=== PATIENT | male | born 1940 | race Caucasian/White ===

== ENCOUNTER 2020-03-06 07:06 | Day surgery (SDC) | payer MEDICARE ==
[~2020-03-06] VITALS: Ht 170.2 cm; Wt 102.7 kg
[~2020-03-06 07:06] MED LIST: OMEP-84 PO; OSC500T PO; SIMV-42 PO; VENL150C50 PO
[2020-03-06] MEDS ORDERED: normal saline 1000ml 1,000 ML IV PRN (07:25)
[2020-03-06] MEDS ORDERED: SYN0.112T PO (07:39)
[2020-03-06] MEDS ORDERED: LOSA50TA3 PO (07:39)
[2020-03-06] MEDS ORDERED: SIMV-42 PO (07:39)
[2020-03-06] MEDS ORDERED: RIVA20TA PO (07:39)
[2020-03-06] MEDS ORDERED: FLEC100T2 PO (07:39)
[2020-03-06 07:51] LABS: BASOPHILS % (AUTO) 0.8 % (0-1); EOSINOPHILS # (AUTO) 0.2 X10'3 (0-0.9); EOSINOPHILS % (AUTO) 3.9 % (0-6); HEMATOCRIT 39.9 % (42.0-52.0); HEMOGLOBIN 13.4 g/dl (14.0-17.9); LYMPHOCYTES # (AUTO) 1.2 X10'3 (1.1-4.8); LYMPHOCYTES % (AUTO) 20.3 % (21-51); MEAN CORPUSCULAR HGB CONC 33.6 g/dL (33.0-36.5); MEAN CORPUSCULAR VOLUME 92.4 FL (78-98); MEAN PLATELET VOLUME 7.7 FL (7.4-10.4); MONOCYTES # (AUTO) 0.6 X10'3 (0-0.9); MONOCYTES % (AUTO) 9.1 % (2-12); NEUTROPHILS # (AUTO) 4.1 X10'3 (1.8-7.7); NEUTROPHILS % (AUTO) 65.9 % (42-75); PLATELET COUNT 204 X10'3 (140-440); RED BLOOD COUNT 4.32 X10'6 (4.70-6.10); RED CELL DISTRIBUTION WIDTH 14.2 % (11.5-14.5); WHITE BLOOD COUNT 6.1 X10'3 (4.5-11.0)
[2020-03-06 08:06] VITALS: BP 148/68
== END 2020-03-06 09:09 | disposition home or self-care (01) ==
LOC: SSTAY O 07:06
PROVIDERS: ATTEND Radiology Diagnostic Radiology
DX: C79.51 Secondary malignant neoplasm of bone (principal); Z53.8 Procedure and treatment not carried out for other reasons; Z11.59 Encounter for screening for other viral diseases; Z91.041 Radiographic dye allergy status
CPT/HCPCS: 36415; 85025; 87635

== ENCOUNTER 2020-03-30 11:36 | Day surgery (SDC) | payer MEDICARE ==
[~2020-03-30] VITALS: Ht 172.7 cm; Wt 102.6 kg
[~2020-03-30 11:36] MED LIST changes: +FLEC100T2 PO; +LOSA50TA3 PO; -OMEP-84 PO; -OSC500T PO; +RIVA20TA PO; +SYN0.112T PO
[2020-03-30] MEDS ORDERED: normal saline 1000ml 1,000 ML IV SCH (11:55)
[2020-03-30 12:30] VITALS: BP 138/93
[2020-03-30] MEDS ORDERED: MULT-1085 PO (12:34)
[2020-03-30] MEDS ORDERED: MAGN400C PO (12:34)
[2020-03-30] MEDS ORDERED: FLAX100032 PO (12:34)
[2020-03-30] MEDS ORDERED: CALC-1215 PO (12:34)
[2020-03-30] MEDS ORDERED: SIMV-45 PO (12:34)
[2020-03-30] MEDS ORDERED: CHOL20004 PO (12:34)
[2020-03-30] MEDS ORDERED: OMEG-133 PO (12:34)
[2020-03-30] MEDS ORDERED: GLUC-95 PO (12:34)
[2020-03-30] MEDS ORDERED: ASCO500C12 PO (12:34)
[2020-03-30] MEDS ORDERED: heparin sodium, porcine/PF 100unit/ml 5ML syringe ONE (13:02)
[2020-03-30] MEDS ORDERED: fentaNYL/PF 50MCG/1 ML 2ML syringe ONE ×2 (13:03→13:49)
[2020-03-30] MEDS ORDERED: LIDOcaine 1%/PF 5ML 10 MG/ML VIAL ONE ×2 (13:03→13:46)
[2020-03-30] MEDS ORDERED: midazolam 2 mg/2 ml injection ONE ×2 (13:03→13:49)
[2020-03-30 14:13] VITALS: BP 132/75
[2020-03-30 14:28] VITALS: BP 121/95
[2020-03-30 14:43] VITALS: BP 132/71
[2020-03-30 15:00] VITALS: BP 140/82
== END 2020-03-30 15:15 | disposition home or self-care (01) ==
LOC: SSTAY O 11:36
PROVIDERS: ATTEND Radiology Vascular & Interventional Radiology
DX: C83.39 Diffuse large B-cell lymphoma, extranodal and solid organ sites (principal); Z91.041 Radiographic dye allergy status; Z79.899 Other long term (current) drug therapy; Z88.8 Allergy status to other drugs, medicaments and biological substances
CPT/HCPCS: 36561; 76937; 77001; 99152; 99153; C1769; C1788; C1894; J1642; J2250; J3010; A6213